=== PATIENT | female | born 1945 | race African-American/Black ===

== ENCOUNTER 2018-04-24 09:58 | Observation (INO) ==
[2018-04-24] MEDS ORDERED: NITROGLYCERIN 2% OINT 1 INCH/GM PACK TOP STA (10:45)
[2018-04-24] MEDS ORDERED: ASPIRIN 325 MG TABLET PO STA (10:45)
[2018-04-24] MEDS ORDERED: NITROGLYCERIN SL 0.4 MG TABLET SL PRN ×2 (10:45→17:07)
[2018-04-24 10:53] LABS: Basophils % 0.2 % (0.0-0.8); Hematocrit 42.3 VOL% (35.7-47.0); Hemoglobin 13.8 GM/DL (12.0-16.0); Immature Granulocytes % 0.4 %; Immature Granulocytes Absolute 0.04 #; Lymphocytes # 2.4 10*3/uL (1.4-4.0); Lymphocytes % 22.2 % (21.3-54.2); Mean Corpuscular HGB Conc 32.6 GM/DL (32-36); Mean Corpuscular Hemoglobin 30 PG (27-34); Mean Platelet Volume 9.5 FL (9.6-12.0); Monocytes # 0.7 10*3/uL (0.11-0.8); Monocytes % 6.1 % (1.7-12.7); Neutrophils # 7.8 10*3/uL (1.4-7.4); Neutrophils % 71.1 % (38.7-73.9); Platelet Count 278 T/CUMM (130-400); Red Blood Count 4.65 MC/CUMM (3.8-5.5); Red Cell Distribution Width 13.2 % (9.3-17.3)
[2018-04-24 11:07] LABS: Alanine Aminotransferase 18 U/L (13-56); Albumin 3.9 G/DL (3.4-5.0); Alkaline Phosphatase 84 U/L (45-117); Aspartate Amino Transferase 12 U/L (0-37); Bilirubin,Total < 0.39 MG/DL (0.2-1.0); Blood Urea Nitrogen 15 MG/DL (7-18); Glucose 79 MG/DL (74-106); Osmolality,Calculated 274.7 MOS/KG (273-304); Potassium 3.9 MMOL/L (3.5-5.1); Sodium 138 MMOL/L (136-145); Total Protein 8.1 G/DL (6.4-8.3)
[2018-04-24 11:27] LABS: Apearance,Urine CLEAR (Clear); Bilirubin,Urine Negative (Negative); Blood, Urine Negative (Negative); Glucose,Urine (UA) Negative (Negative); Ketones,Urine Negative (Negative); Nitrite,Urine Negative (Negative); Protein,Urine Negative; RBC,Urine <1 /HPF (0-4); Urine Color Straw (Yellow); Urine Specific Gravity 1.006 (1.001-1.035); Urine Urobilinogen < 2.0 EU/DL (0.2-1.0); WBC,Urine <1 /HPF (0-6)
[2018-04-24 11:59] LABS: Sedimentation Rate-Westergren 39 MM/HR (0-30)
[2018-04-24] MEDS ORDERED: guaiFENesin/DM ER 600-30 MG TABLET PO PRN (14:12)
[2018-04-24] MEDS ORDERED: MAGNESIUM SULF RIDER 4 GM in PREMIX 1 EACH IV PRN (14:12)
[2018-04-24] MEDS ORDERED: POTASSIUM CHLORIDE 20 MEQ TABLET PO PRN (14:12)
[2018-04-24] MEDS ORDERED: MORPHINE 4 MG/1 ML VIAL IV PRN (14:12)
[2018-04-24] MEDS ORDERED: diphenhydrAMINE CAP 25 MG CAPSULE PO PRN (14:12)
[2018-04-24] MEDS ORDERED: DOCUSATE SODIUM 100 MG CAPSULE PO PRN (14:12)
[2018-04-24] MEDS ORDERED: ACETAMINOPHEN 325 MG TABLET PO PRN ×2 (14:12→17:11)
[2018-04-24] MEDS ORDERED: ZALEPLON 5 MG CAPSULE PO PRN (14:12)
[2018-04-24] MEDS ORDERED: MAGNESIUM SULF RIDER 2 GM in PREMIX 1 EACH IV PRN (14:12)
[2018-04-24] MEDS ORDERED: ONDANSETRON 4 MG/2 ML VIAL IV PRN (14:12)
[2018-04-24] MEDS ORDERED: BISACODYL 5 MG TABLET PO PRN (14:12)
[2018-04-24 15:40] LABS: Troponin I < 0.015 NG/ML (0.00-0.045)
[2018-04-24] MEDS: SPIRONOLACTONE 25 MG TABLET PO SCH ×2 (16:19→21:36)
[2018-04-24 17:37] LABS: Troponin I < 0.015 NG/ML (0.00-0.045)
[2018-04-24] MEDS: ALBUTEROL 0.63 MG/3 ML NEB RESP TX SCH ×2 (18:20→19:38)
[2018-04-24] MEDS: traMADol 50 MG TABLET PO SCH (18:21)
[2018-04-24] MEDS ORDERED: ENOXAPARIN 40 MG/0.4 ML SYRINGE SUBCUT SCH (21:00)
[2018-04-24] MEDS ORDERED: GABAPENTIN 100 MG CAPSULE PO SCH (21:00)
[2018-04-24] MEDS: CETIRIZINE 10 MG TABLET PO SCH (21:36)
[2018-04-24] MEDS: MINOXIDIL 2.5 MG TABLET PO SCH (21:36)
[2018-04-24] MEDS: ACETAMINOPHEN 325 MG TABLET PO SCH (21:38)
[2018-04-24] MEDS: METOPROLOL TARTRATE 25 MG TABLET PO SCH (21:38)
[2018-04-24] MEDS: LOSARTAN 50 MG TABLET PO SCH (21:38)
[2018-04-24] MEDS: APIXABAN 5 MG TABLET PO SCH (21:38)
[2018-04-24] MEDS: GABAPENTIN 100 MG CAPSULE PO SCH (21:38)
[2018-04-24] MEDS: FLUTICASONE 50 MCG NASAL SPRAY 16 GM BOTTLE BOTH NARES SCH (21:40)
[2018-04-25] MEDS: ALBUTEROL 0.63 MG/3 ML NEB RESP TX SCH ×2 (01:39→07:07)
[2018-04-25 03:17] LABS: Basophils % 0.4 % (0.0-0.8); Eosinophils # 0.1 10*3/uL (0.0-0.87); Eosinophils % 0.9 % (0.00-10.9); Hematocrit 38.2 VOL% (35.7-47.0); Hemoglobin 12.2 GM/DL (12.0-16.0); Immature Granulocytes % 0.2 %; Immature Granulocytes Absolute 0.02 #; Lymphocytes # 2.9 10*3/uL (1.4-4.0); Lymphocytes % 35.6 % (21.3-54.2); Mean Corpuscular HGB Conc 31.9 GM/DL (32-36); Mean Corpuscular Hemoglobin 29 PG (27-34); Mean Corpuscular Volume 91.6 FL (87-102); Mean Platelet Volume 9.7 FL (9.6-12.0); Monocytes # 0.5 10*3/uL (0.11-0.8); Neutrophils # 4.6 10*3/uL (1.4-7.4); Neutrophils % 56.9 % (38.7-73.9); Platelet Count 266 T/CUMM (130-400); Red Blood Count 4.17 MC/CUMM (3.8-5.5); Red Cell Distribution Width 13.4 % (9.3-17.3); White Blood Count 8.1 T/CUMM (4-12)
[2018-04-25 03:26] LABS: Calcium 9.1 MG/DL (8.5-10.1); Osmolality,Calculated 277.7 MOS/KG (273-304); Potassium 4.1 MMOL/L (3.5-5.1); Risk Ratio 2.94; Thyroid Stimulating Hormone 2.77 uIU/ml (0.358-3.74); VLDL CHOLESTEROL 21.4 MG/DL
[2018-04-25 08:06] VITALS: BP 122/70
[2018-04-25] MEDS ORDERED: PANTOPRAZOLE 40 MG TABLET PO SCH (09:00)
[2018-04-25] MEDS ORDERED: AMIODARONE 200 MG TABLET PO SCH (09:00)
[2018-04-25] MEDS ORDERED: AZITHROMYCIN 250 MG TABLET PO SCH (09:00)
[2018-04-25] MEDS ORDERED: amLODIPine 5 MG TABLET PO SCH (09:00)
[2018-04-25] MEDS ORDERED: FUROSEMIDE 20 MG TABLET PO SCH (09:00)
[2018-04-25] MEDS ORDERED: PSYLLIUM POWDER 3.7 GM/PACK PO SCH (09:00)
[2018-04-25] MEDS ORDERED: ASPIRIN EC 81 MG TABLET PO SCH (09:00)
[2018-04-25] MEDS ORDERED: TERBINAFINE 250 MG TABLET PO SCH (09:00)
[2018-04-25] MEDS ORDERED: ISOSORBIDE MONONITRATE 30 MG TABLET PO SCH (09:00)
[2018-04-25] MEDS ORDERED: MAGNESIUM CHLORIDE 64 MG TABLET PO SCH (09:00)
[2018-04-25] MEDS ORDERED: SERTRALINE 100 MG TABLET PO SCH (09:00)
[2018-04-25] MEDS: MINOXIDIL 2.5 MG TABLET PO SCH (10:53)
[2018-04-25] MEDS: CETIRIZINE 10 MG TABLET PO SCH (10:53)
[2018-04-25] MEDS: GABAPENTIN 100 MG CAPSULE PO SCH (10:54)
[2018-04-25] MEDS: APIXABAN 5 MG TABLET PO SCH (10:54)
[2018-04-25] MEDS: METOPROLOL TARTRATE 25 MG TABLET PO SCH (10:55)
[2018-04-25] MEDS: traMADol 50 MG TABLET PO SCH (10:55)
[2018-04-25] MEDS: LOSARTAN 50 MG TABLET PO SCH (10:55)
[2018-04-25] MEDS: SPIRONOLACTONE 25 MG TABLET PO SCH (10:56)
[2018-04-25] MEDS: ACETAMINOPHEN 325 MG TABLET PO SCH (10:56)
[2018-04-25] MEDS: FLUTICASONE 50 MCG NASAL SPRAY 16 GM BOTTLE BOTH NARES SCH (10:57)
== END 2018-04-25 11:51 | disposition home or self-care (01) ==
LOC: N.EDINP 09:58 → N.ED 09:58 → N.TELES 15:19
PROVIDERS: ADMIT Internal Medicine Cardiovascular Disease; ATTEND Internal Medicine Cardiovascular Disease